=== PATIENT | female | born 1950 | race Asian ===

== ENCOUNTER 2018-04-17 10:34 | Emergency (ER) | payer OTHER, MEDICARE ==
[~2018-04-17] VITALS: Ht 160 cm; Wt 49.9 kg
[2018-04-17 10:34] VITALS: BP_SYST 136
[~2018-04-17 10:34] MED LIST: OMEP40CA33 PO
[2018-04-17] MEDS ORDERED: DIPH-TET Vacc 0.5 ML VIAL I.M. ONE (12:15)
[2018-04-17 13:03] VITALS: BP_SYST 128
== END 2018-04-17 13:03 | disposition home or self-care (01) ==
LOC: SED 10:34
DX: S61.511A Laceration without foreign body of right wrist, initial encounter (principal); R03.0 Elevated blood-pressure reading, without diagnosis of hypertension; K21.9 Gastro-esophageal reflux disease without esophagitis; Z85.038 Personal history of other malignant neoplasm of large intestine; W25.XXXA Contact with sharp glass, initial encounter; Y93.89 Activity, other specified; Y92.009 Unspecified place in unspecified non-institutional (private) residence as the place of occurrence of the external cause; Y99.8 Other external cause status
CPT/HCPCS: 90714; 99283